=== PATIENT | male | born 1950 | race Caucasian/White ===

== ENCOUNTER 2020-11-13 10:52 | Emergency (ER) | payer MEDICARE ==
[2020-11-13 11:35] LABS: Urine Blood Negative (Negative); Urine Glucose Negative (Negative); Urine Protein Negative (Negative); Urine Specific Gravity 1.025 (1.005-1.030); Urine pH 6.5 (5.0-7.0)
[2020-11-13] MEDS ORDERED: KETOROLAC 30 MG/ML INJ ONE (11:46)
--- NOTE | 2020-11-13 12:03 | RAD REPORT ---
EXAM DESCRIPTION: CTAbdomen Pelvis W Contrast - 11/13/2020 11:50 am CLINICAL HISTORY: Abdominal pain. ABD PAIN COMPARISON: No comparisons TECHNIQUE: Biphasic CT imaging of the abdomen and pelvis was performed with 100 ml non-ionic IV cont rast. All CT scans are performed using dose optimization technique as appropriate and may include automated exposure control or mA/KV adjustment according to patient size. FINDINGS: The lung bases are clear. The liver, spleen, pancreas, adrenal glands and kidneys are within normal limits. No bowel obstruction, free air, free fluid or abscess. Sigmoid diverticulosis is present. The appendi x is normal. No evidence of significant lymphadenopathy. The prostate gland appears prominent in size. Urinary bladder wall thickening is noted. Small fat con taining right inguinal hernia. Mild to moderate lumbar degenerative changes. IMPRESSION: Prostate enlargement is noted with thickening of the urinary bladder. Correlation for po ssible cystitis is suggested. Small fat containing right inguinal hernia.
[2020-11-13 12:17] LABS: Basophils % 0.5 % (0-1.3); Hematocrit 44.6 % (39.6-49.0); Lymphocytes % 21.5 % (15.3-44.8); MPV 7.9 fL (7.6-11.3); RBC Red Blood Cell Count 4.99 M/uL (4.33-5.43)
[2020-11-13 12:33] LABS: Albumin 3.4 g/dL (3.4-5.0); Bilirubin Total 0.6 mg/dL (0.2-1.0); Potassium 3.7 mmol/L (3.5-5.1); Protein, Total 7.8 g/dL (6.4-8.2)
[2020-11-13] MEDS ORDERED: CEFTRIAXONE/SWI 1gm 1 GM/10 ML SYR ONE (12:34)
[2020-11-13] MEDS ORDERED: SMZ./TMP. 800/160 MG TABLET ONE (12:34)
--- NOTE | 2020-11-13 12:35 | ER ---
Nurse's Notes [facility] Name: Yuriy Hines Age: 70 yrs Sex: Male : 1950 Arrival Date: 11/13/2020 Time: 10:57 Bed 19 Private MD: Diagnosis: UTI/ Urinary tract infection, site not specified;Enlarged prostate with lower urinary tract symptoms;Strain of adductor muscle, fascia and tendon of right thigh Presentation: 11/13 11:11 Chief complaint: Chief complaint: Patient states: right groin pain radiating to abdomen iw and back , started , no known injury. 11:13 Coronavirus screen: At this time, the client does not indicate any symptoms associated iw with coronavirus-19. Ebola Screen: Patient negative for fever greater than or equal to 101.5 degrees Fahrenheit, and additional compatible Ebola Virus Disease symptoms Patient denies exposure to infectious person. Patient denies travel to an Ebola-affected area in the 21 days before illness onset. No symptoms or risks identified at this time. Initial Sepsis Screen: Does the patient meet any 2 criteria? No. Patient's initial sepsis screen is negative. Does the patient have a suspected source of infection? No. Patient's initial sepsis screen is negative. Risk Assessment: Do you want to hurt yourself or someone else? Patient reports no desire to harm self or others. 11:13 Acuity: CHRISTY 3 iw 11:13 Method Of Arrival: Ambulatory iw Historical: - Allergies: 11:19 No Known Allergies; iw - Home Meds: 11:23 amlodipine oral [Active]; iw - PMHx: 11:23 Hypertensive disorder; iw - PSHx: 11:23 None; iw - Immunization history:: Client reports receiving the 2nd dose of the Covid vaccine. - Family history:: not pertinent. - Social history:: Smoking status: Patient denies any tobacco usage or history of. Screenin:41 Abuse screen: Denies threats or abuse. Denies injuries from another. Nutritional jl7 screening: No deficits noted. Tuberculosis screening: No symptoms or risk factors identified. Fall Risk IV access (20 points). Total Meneses Fall Scale indicates No Risk (0-24 pts). Assessment: 11:47 General: Appears in no apparent distress. uncomfortable, Behavior is calm, cooperative, jl7 appropriate for age. Pain: Complains of pain in groin Pain radiates to back and abdomen Pain currently is 9 out of 10 on a pain scale. Pain began x 1 week. Neuro: Level of Consciousness is awake, alert, obeys commands, Oriented to person, place, time, situation. Cardiovascular: Patient's skin is warm and dry. Respiratory: Airway is patent Respiratory effort is even, unlabored, Respiratory pattern is regular, symmetrical. GI: Abdomen is non-distended. Derm: Skin is pink, warm \T\ dry. 12:29 Reassessment: Dr. Smiley at bedside discussing results and POC. jl7 Vital Signs: 11:24 BP 155 / 100; Pulse 87; Resp 16; Pulse Ox 96% on R/A; iw 12:43 BP 142 / 101; Pulse 76; Resp 15; Pulse Ox 99% ; Pain 3/10; jl7 ED Course: 10:57 Patient arrived in ED. am2 10:57 Melrin Smiley MD is Attending Physician. adan 11:12 Kirsten Huerta RN is Primary Nurse. jl7 11:15 Triage completed. iw 11:25 Arm band placed on. iw 11:30 Initial lab(s) drawn, by me, sent to lab. Inserted saline lock: 20 gauge in right kj1 antecubital area, using aseptic technique. Blood collected. 11:41 Patient has correct armband on for positive identification. Bed in low position. Call jl7 light in reach. Side rails up X 1. 11:50 CT Abd/Pelvis - IV Contrast Only In Process Unspecified. EDMS 12:34 Stef Toussaint DO is Referral Physician. [facility] 12:43 No provider procedures requiring assistance completed. IV discontinued, intact, jl7 bleeding controlled, No redness/swelling at site. Pressure dressing applied. Administered Medications: 11:30 Drug: Ketorolac 30 mg Route: IVP; Site: right antecubital; jl7 11:45 Follow up: Response: No adverse reaction; Pain is decreased jl7 12:19 CANCELLED (wrong pharmacy orderr): Rocephin - (cefTRIAXone) 1 grams IVPB once over 30 jl7 mins; (mix in 50 mL NS) 12:19 Drug: Bactrim (trimethoprim-sulfamethoxazole) (160 mg-800 mg (DS) 1 tablet Route: PO; jl7 12:28 Follow up: Response: No adverse reaction jl 12:19 Drug: Rocephin (cefTRIAXone) 1 grams Route: IV; Rate: calculated rate; Site: right 7 antecubital; 12:28 Follow up: Response: No adverse reaction; IV Status: Completed infusion jl7 Outcome: 12:34 Discharge ordered by MD. arellano 12:43 Discharged to home ambulatory. jl7 12:43 Condition: stable 12:43 Discharge instructions given to patient, Instructed on discharge instructions, follow up and referral plans. medication usage, Demonstrated understanding of instructions, follow-up care, medications, Prescriptions given X 2. 12:44 Patient left the ED. jl7 Signatures: Dispatcher [employer] EDMS Merlin Smiley MD MD cha Williams, Irene RN Kirsten Martinez RN RN jlMadison Melendez Kandis [email or web address] Corrections: (The following items were deleted from the chart) 11:15 11:11 Chief complaint: iw
--- NOTE | 2020-11-13 12:35 | EDPHYS ---
Physician Documentation [facility] Name: Yuriy Hines Age: 70 yrs Sex: Male : 1950 Arrival Date: 11/13/2020 Time: 10:57 Bed 19 Private MD: LENKA Physician Merlin Smiley HPI: 11/13 11:25 This 70 yrs old Male presents to ER via Ambulatory with complaints of Groin adan Pain, Abdominal Pain. 11:25 The patient presents with decreased range of motion, pain, that is acute. The adan complaints affect the right inner thigh. Context: The problem was sustained at an unknown site. Onset: The symptoms/episode began/occurred 1 week(s) ago. Modifying factors: The symptoms are alleviated by remaining still, the symptoms are aggravated by movement. Associated signs and symptoms: The patient has no apparent associated signs or symptoms. The patient presents with abdominal pain in the lower abdomen, in the right upper quadrant. Onset: The symptoms/episode began/occurred 1 week(s) ago. Historical: - Allergies: 11:19 No Known Allergies; iw - Home Meds: 11:23 amlodipine oral [Active]; iw - PMHx: 11:23 Hypertensive disorder; iw - PSHx: 11:23 None; iw - Immunization history:: Client reports receiving the 2nd dose of the Covid vaccine. - Family history:: not pertinent. - Social history:: Smoking status: Patient denies any tobacco usage or history of. ROS: 11:25 Constitutional: Negative for fever, chills, and weight loss, Eyes: Negative for injury, adan pain, redness, and discharge, ENT: Negative for injury, pain, and discharge, Neck: Negative for injury, pain, and swelling, Cardiovascular: Negative for chest pain, palpitations, and edema, Respiratory: Negative for shortness of breath, cough, wheezing, and pleuritic chest pain, Back: Negative for injury and pain, : Negative for injury, bleeding, discharge, and swelling, MS/Extremity: Negative for injury and deformity, Skin: Negative for injury, rash, and discoloration, Neuro: Negative for headache, weakness, numbness, tingling, and seizure. 11:25 Abdomen/GI: Positive for abdominal pain, of the suprapubic area and right lower quadrant. 11:25 MS/extremity: Positive for decreased range of motion, pain, tenderness, of the right inner thigh. Exam: 11:25 Constitutional: This is a well developed, well nourished patient who is awake, alert, adan and in no acute distress. Head/Face: Normocephalic, atraumatic. Eyes: Pupils equal round and reactive to light, extra-ocular motions intact. Lids and lashes normal. Conjunctiva and sclera are non-icteric and not injected. Cornea within normal limits. Periorbital areas with no swelling, redness, or edema. ENT: Nares patent. No nasal discharge, no septal abnormalities noted. Tympanic membranes are normal and external auditory canals are clear. Oropharynx with no redness, swelling, or masses, exudates, or evidence of obstruction, uvula midline. Mucous membranes moist. Neck: Trachea midline, no thyromegaly or masses palpated, and no cervical lymphadenopathy. Supple, full range of motion without nuchal rigidity, or vertebral point tenderness. No Meningismus. Chest/axilla: Normal chest wall appearance and motion. Nontender with no deformity. No lesions are appreciated. Cardiovascular: Regular rate and rhythm with a normal S1 and S2. No gallops, murmurs, or rubs. Normal PMI, no JVD. No pulse deficits. Respiratory: Lungs have equal breath sounds bilaterally, clear to auscultation and percussion. No rales, rhonchi or wheezes noted. No increased work of breathing, no retractions or nasal flaring. Back: No spinal tenderness. No costovertebral tenderness. Full range of motion. Male : Normal genitalia with no discharge or lesions. Skin: Warm, dry with normal turgor. Normal color with no rashes, no lesions, and no evidence of cellulitis. Neuro: Awake and alert, GCS 15, oriented to person, place, time, and situation. Cranial nerves II-XII grossly intact. Motor strength 5/5 in all extremities. Sensory grossly intact. Cerebellar exam normal. Normal gait. Psych: Awake, alert, with orientation to person, place and time. Behavior, mood, and affect are within normal limits. 11:25 Abdomen/GI: Inspection: abdomen appears normal, Bowel sounds: normal, Palpation: mild abdominal tenderness, in the suprapubic area and right lower quadrant, Liver: no appreciated palpable abnormalities, Hernia: not appreciated. 11:25 : CVA tenderness, is absent, Male external genitalia: normal, no abrasion, no swelling, no tenderness, Bladder: is normal, non-distended, Sexual behavior: the patient is sexually active, and reports a single partner. Vital Signs: 11:24 BP 155 / 100; Pulse 87; Resp 16; Pulse Ox 96% on R/A; iw 12:43 BP 142 / 101; Pulse 76; Resp 15; Pulse Ox 99% ; Pain 3/10; jl7 MDM: 11:03 Patient medically screened. [facility] 11:25 Differential diagnosis: appendicitis. Data reviewed: vital signs, nurses notes, lab [facility] test result(s), radiologic studies, CT scan. Data interpreted: library monitor: rate is 87 beats/min, rhythm is regular, Pulse oximetry: on room air is 96 %. Counseling: I had a detailed discussion with the patient and/or guardian regarding: the historical points, exam findings, and any diagnostic results supporting the discharge/admit diagnosis, lab results, radiology results. 11/13 11:20 Order name: CBC with Diff [facility] 11/13 11:20 Order name: Comprehensive Metabolic Panel [facility] 11/13 11:20 Order name: Lipase [facility] 11/13 11:20 Order name: Urine Culture [facility] 11/13 11:20 Order name: CBC with Automated Diff; Complete Time: 12:21 [facility] 11/13 11:20 Order name: Comprehensive Metabolic Panel; Complete Time: 12:34 [facility] 11/13 11:20 Order name: CT Abd/Pelvis - IV Contrast Only; Complete Time: 12:04 [facility] 11/13 11:20 Order name: Lipase; Complete Time: 12:34 [facility] 11/13 11:20 Order name: Urine Culture [facility] 11/13 11:35 Order name: Urine Dipstick-Ancillary; Complete Time: 12:04 [facility] 11/13 11:20 Order name: Urine Dipstick-Ancillary (obtain specimen); Complete Time: 11:24 [facility] Administered Medications: 11:30 Drug: Ketorolac 30 mg Route: IVP; Site: right antecubital; jl7 11:45 Follow up: Response: No adverse reaction; Pain is decreased jl7 12:19 CANCELLED (wrong pharmacy orderr): Rocephin - (cefTRIAXone) 1 grams IVPB once over 30 jl7 mins; (mix in 50 mL NS) 12:19 Drug: Bactrim (trimethoprim-sulfamethoxazole) (160 mg-800 mg (DS) 1 tablet Route: PO; jl7 12:28 Follow up: Response: No adverse reaction jl7 12:19 Drug: Rocephin (cefTRIAXone) 1 grams Route: IV; Rate: calculated rate; Site: right jl7 antecubital; 12:28 Follow up: Response: No adverse reaction; IV Status: Completed infusion jl7 Disposition Summary: 11/13/20 12:34 Discharge Ordered Location: Home adan Problem: new adan Symptoms: have improved adan Condition: Stable adan Diagnosis - UTI/ Urinary tract infection, site not specified adan - Enlarged prostate with lower urinary tract symptoms adan - Strain of adductor muscle, fascia and tendon of right thigh adan Followup: adan - With: Private Physician - When: 2 - 3 days - Reason: Recheck today's complaints, Continuance of care, Re-evaluation by your physician Followup: adan - With: - When: 2 - 3 days - Reason: Recheck today's complaints, Continuance of care, Re-evaluation by your physician Discharge Instructions: - Discharge Summary Sheet adan - Musculoskeletal Pain adan - Urinary Tract Infection, Adult adan - Urinary Tract Infection, Adult, [id number] adan - Benign Prostatic Hyperplasia adan Forms: - Medication Reconciliation Form adan - Thank You Letter adan - Antibiotic Education adan - Prescription Opioid Use adan Prescriptions: - Ibuprofen 600 mg Oral Tablet - take 1 tablet by ORAL route every 6 hours As needed take with food; 30 tablet; [facility] Refills: 0, Product Selection Permitted - Bactrim DS 800-160 mg Oral Tablet - take 1 tablet by ORAL route every 12 hours for 10 days; 20 tablet; Refills: 0, [facility] Product Selection Permitted Signatures: Dispatcher [employer] Merlin Kent MD MD cha Williams, Irene RN DANA Kirsten Huerta RN RN jl7 Corrections: (The following items were deleted from the chart) 12:19 12:06 Rocephin - (cefTRIAXone) 1 grams IVPB once over 30 mins; (mix in 50 mL NS) jl7 ordered. [facility] 12:19 12:19 Rocephin - (cefTRIAXone) 1 grams IVPB once over 30 mins; (mix in 50 mL NS) jl7 ordered. jl7
[2020-11-13 12:52] VITALS: BP 142/101; O2SAT 99
== END 2020-11-13 12:44 | disposition home or self-care (01) ==
LOC: ER 10:52
DX: N39.0 Urinary tract infection, site not specified (principal); N40.1 Benign prostatic hyperplasia with lower urinary tract symptoms; S76.211A Strain of adductor muscle, fascia and tendon of right thigh, initial encounter; I10 Essential (primary) hypertension
CPT/HCPCS: 87088; 85025; 87086; 36415; 82565; 81003; 83690; 80053; 74177; 96375; 96374; 99284; Q9967; J0696